=== PATIENT | female | born 1995 | race American Indian/Alaskan Native ===

== ENCOUNTER 2017-09-05 21:43 | Emergency (ER) | payer MEDICAID ==
[~2017-09-05] VITALS: Ht 182.9 cm; Wt 107.3 kg
[~2017-09-05 21:43] MED LIST: NO HOME MEDS
[2017-09-05 22:23] LABS: BASOPHILS % (AUTO) 0.2 % (0-1); EOSINOPHILS % (AUTO) 0.3 % (0-6); HEMATOCRIT 43.1 % (35.0-45.0); HEMOGLOBIN 14.8 g/dl (12.0-16.0); LYMPHOCYTES # (AUTO) 1.8 X10'3 (1.1-4.8); MEAN CORPUSCULAR HEMOGLOBIN 30.1 PG (27.0-31.0); MEAN CORPUSCULAR HGB CONC 34.3 % (33.0-36.5); MEAN CORPUSCULAR VOLUME 87.8 FL (78-98); MONOCYTES # (AUTO) 0.7 X10'3 (0-0.9); MONOCYTES % (AUTO) 6.5 % (2-12); NEUTROPHILS # (AUTO) 8.6 X10'3 (1.8-7.7); PLATELET COUNT 218 X10'3 (140-440); RED BLOOD COUNT 4.91 X10'6 (4.20-5.60); RED CELL DISTRIBUTION WIDTH 14.2 % (11.5-14.5); WHITE BLOOD COUNT 11.1 X10'3 (4.5-11.0)
[2017-09-05] MEDS ORDERED: ondansetron/PF 4mg/2ml inj IV ONE (22:25)
[2017-09-05] MEDS ORDERED: normal saline 1000ML IV soln IVB ONE (22:25)
[2017-09-05] MEDS: ketorolac tromethamine 15mg/ml inj. IV ONE ×2 (22:25→23:54)
[2017-09-05 22:33] LABS: PROTHROMBIN TIME 10.5 SECONDS (9.0-12.0)
[2017-09-05 22:36] LABS: ALANINE AMINOTRANSFERASE 49 U/L (12-78); ALBUMIN 4.1 G/DL (3.4-5.0); ALBUMIN/GLOBULIN RATIO 1.1 (1.1-1.5); ALKALINE PHOSPHATASE 81 IU/L (46-116); ANION GAP 12 (8-16); ASPARTATE AMINO TRANSFERASE 31 U/L (10-37); BILIRUBIN,TOTAL 0.6 MG/DL (0.1-1.0); BLOOD UREA NITROGEN 8 MG/DL (7-18); CHLORIDE 106 MMOL/L (99-107); CREATININE 0.89 MG/DL (0.40-0.90); GLUCOSE 119 MG/DL (70-104); LIPASE 94 U/L (73-393); POTASSIUM 3.6 MMOL/L (3.5-5.1); SODIUM 143 MMOL/L (135-145); TOTAL CARBON DIOXIDE 25.4 MMOL/L (24-32); TOTAL PROTEIN 7.9 G/DL (6.4-8.2); eGFR 79 ML/MIN
[2017-09-05] MEDS ORDERED: pantoprazole 40 MG vial IV ONE (22:50)
[2017-09-05 23:49] LABS: CLARITY,URINE CLEAR (Clear); COLOR,URINE YELLOW (Yellow); GLUCOSE, URINE NEGATIVE (Neg); KETONES,URINE NEGATIVE (Neg); LEUKOCYTE ESTERASE ,URINE NEGATIVE (Neg); NITRITES, URINE NEGATIVE (Neg); OCCULT BLOOD,URINE TRACE-INTACT (Neg); PH,URINE 5.5 (4.8-8.0); PROTEIN,URINE 30 mg/dl (Neg); URINE HCG NEGATIVE (NEG); UROBILINOGEN,URINE 0.2 E.U/dL (0.2-1.0)
[2017-09-05 23:50] LABS: UA COLLECTION TYPE CLN CATCH MIDSTREAM
[2017-09-05 23:54] LABS: WBC,URINE 0-4 /HPF (0-4)
[2017-09-05 23:55] LABS: BACTERIA,URINE 2+ /HPF (Neg)
[2017-09-05 23:56] LABS: SQUAMOUS EPITHELIAL CELL,UR MODERATE /LPF (FEW)
[2017-09-06] MEDS ORDERED: morphine 4 MG/ML inj SYRINge IV ONE
[2017-09-06] MEDS ORDERED: METR500T4 PO (01:15)
[2017-09-06] MEDS ORDERED: CIPR-230 PO (01:15)
[2017-09-06] MEDS ORDERED: ONDA4TAB12 PO (01:15)
[2017-09-06] MEDS ORDERED: DICY10CA88 PO (01:15)
[2017-09-06 01:21] VITALS: BP 110/75
== END 2017-09-06 01:24 | disposition home or self-care (01) ==
LOC: ER 21:43
DX: K52.9 Noninfective gastroenteritis and colitis, unspecified (principal); F10.10 Alcohol abuse, uncomplicated; R10.84 Generalized abdominal pain; F14.90 Cocaine use, unspecified, uncomplicated; Z98.890 Other specified postprocedural states; Z79.899 Other long term (current) drug therapy
CPT/HCPCS: 36415; 70450; 74176; 80053; 80320; 81001; 81025; 83690; 85025; 85610; 96361; 96374; 96375; 99285; C9113; J1885; J2270; J2405; J7030

== ENCOUNTER 2018-07-20 09:38 | Emergency (ER) | payer MEDICAID ==
[~2018-07-20] VITALS: Ht 180.3 cm; Wt 109.0 kg
[~2018-07-20 09:38] MED LIST changes: +DICY10CA88 PO; +ONDA4TAB12 PO
[2018-07-20 09:50] VITALS: BP 142/73
[2018-07-20 10:10] LABS: BASOPHILS % (AUTO) 0.2 % (0-1); EOSINOPHILS # (AUTO) 0.2 X10'3 (0-0.9); EOSINOPHILS % (AUTO) 1.4 % (0-6); HEMATOCRIT 44.1 % (35.0-45.0); LYMPHOCYTES # (AUTO) 1.5 X10'3 (1.1-4.8); LYMPHOCYTES % (AUTO) 13.1 % (21-51); MEAN CORPUSCULAR HEMOGLOBIN 29.9 PG (27.0-31.0); MEAN CORPUSCULAR VOLUME 87.8 FL (78-98); MEAN PLATELET VOLUME 8.2 FL (7.4-10.4); MONOCYTES # (AUTO) 0.6 X10'3 (0-0.9); MONOCYTES % (AUTO) 5.4 % (2-12); NEUTROPHILS % (AUTO) 79.9 % (42-75); PLATELET COUNT 233 X10'3 (140-440); RED BLOOD COUNT 5.02 X10'6 (4.20-5.60); WHITE BLOOD COUNT 11.3 X10'3 (4.5-11.0)
[2018-07-20 10:24] LABS: ALANINE AMINOTRANSFERASE 33 U/L (12-78); ALBUMIN 4.2 G/DL (3.4-5.0); ALBUMIN/GLOBULIN RATIO 1.1 (1.1-1.5); ALKALINE PHOSPHATASE 76 IU/L (46-116); ANION GAP 12 (8-16); ASPARTATE AMINO TRANSFERASE 24 U/L (10-37); BILIRUBIN,TOTAL 0.7 MG/DL (0.1-1.0); BLOOD UREA NITROGEN 16 MG/DL (7-18); BUN/CREATININE RATIO 15.4 (6.6-38.0); CALCIUM 9.3 MG/DL (8.5-10.1); CHLORIDE 104 MMOL/L (99-107); CREATININE 1.04 MG/DL (0.40-0.90); GLUCOSE 108 MG/DL (70-104); LIPASE 100 U/L (73-393); POTASSIUM 3.8 MMOL/L (3.5-5.1); SODIUM 141 MMOL/L (135-145); TOTAL CARBON DIOXIDE 25.5 MMOL/L (24-32); TOTAL PROTEIN 8.1 G/DL (6.4-8.2); eGFR 65 ML/MIN
[2018-07-20] MEDS ORDERED: ondansetron/PF 4mg/2ml inj IV ONE (10:25)
[2018-07-20] MEDS ORDERED: pantoprazole 40mg Tablet.DR PO ONE (10:25)
[2018-07-20] MEDS ORDERED: normal saline 1000ML IV soln IVB ONE (10:25)
[2018-07-20 10:36] LABS: URINE HCG NEGATIVE (NEG)
[2018-07-20 10:39] LABS: CLARITY,URINE CLEAR (Clear); COLOR,URINE YELLOW (Yellow); GLUCOSE, URINE NEGATIVE (Neg); KETONES,URINE 15 mg/dl (Neg); LEUKOCYTE ESTERASE ,URINE NEGATIVE (Neg); NITRITES, URINE NEGATIVE (Neg); OCCULT BLOOD,URINE NEGATIVE (Neg); PROTEIN,URINE 30 mg/dl (Neg); UROBILINOGEN,URINE 0.2 E.U/dL (0.2-1.0)
[2018-07-20 10:45] LABS: UA COLLECTION TYPE CLN CATCH MIDSTREAM
[2018-07-20 10:46] LABS: BACTERIA,URINE 1+ /HPF (Neg); MUCUS STRANDS MODERATE /LPF (Neg); RBC,URINE 0-2 /HPF (0-2); SQUAMOUS EPITHELIAL CELL,UR MODERATE /LPF (FEW); WBC,URINE NONE SEEN /HPF (0-4)
[2018-07-20] MEDS ORDERED: pantoprazole 40 MG vial IV ONE (11:10)
[2018-07-20] MEDS ORDERED: proCHLORperazine 10 MG/2 ml inj IV ONE (11:40)
== END 2018-07-20 12:15 | disposition home or self-care (01) ==
LOC: ER 09:38
DX: R10.13 Epigastric pain (principal); R11.2 Nausea with vomiting, unspecified; R19.7 Diarrhea, unspecified; F14.90 Cocaine use, unspecified, uncomplicated; Z98.890 Other specified postprocedural states; Z79.899 Other long term (current) drug therapy
CPT/HCPCS: 36415; 80053; 81001; 81025; 83690; 85025; 85610; 96361; 96374; 96375; 99283; C9113; J0780; J2405; J7030

== ENCOUNTER 2018-09-28 21:03 | Emergency (ER) | payer MEDICAID ==
[~2018-09-28] VITALS: Ht 180.3 cm; Wt 113.0 kg
[2018-09-28 21:21] VITALS: BP 128/70
[2018-09-28] MEDS ORDERED: TRAM50TA2 PO (21:44)
[2018-09-28] MEDS ORDERED: PENI500T2 PO (21:44)
[2018-09-28] MEDS ORDERED: HYDROcodone/acetaminophen 5mg/325mg tablet PO ONE (21:45)
== END 2018-09-28 21:53 | disposition home or self-care (01) ==
LOC: ER 21:04
DX: K02.9 Dental caries, unspecified (principal); F17.210 Nicotine dependence, cigarettes, uncomplicated; F14.90 Cocaine use, unspecified, uncomplicated; Z98.890 Other specified postprocedural states; Z79.899 Other long term (current) drug therapy
CPT/HCPCS: 99283

== ENCOUNTER 2018-12-21 20:48 | Emergency (ER) | payer MEDICAID ==
[~2018-12-21] VITALS: Ht 180.3 cm; Wt 109.1 kg
[2018-12-21] MEDS ORDERED: PRED20TA PO (22:56)
[2018-12-21] MEDS ORDERED: HYDR-3965 PO (22:56)
[2018-12-22 00:50] VITALS: BP 134/76
== END 2018-12-21 23:35 | disposition home or self-care (01) ==
LOC: ER 20:49
DX: G56.01 Carpal tunnel syndrome, right upper limb (principal); F14.90 Cocaine use, unspecified, uncomplicated; Z98.890 Other specified postprocedural states; Z79.899 Other long term (current) drug therapy
CPT/HCPCS: 29260; 73130; 99283